=== PATIENT | female | born 1980 | race Caucasian/White ===

== ENCOUNTER 2021-05-22 23:37 | Emergency (ER) | payer BC ==
[~2021-05-22] VITALS: Ht 154.9 cm; Wt 81.8 kg
[2021-05-22] MEDS ORDERED: normal saline 1000ml 1,000 ML IV ONE (23:45)
[2021-05-22] MEDS ORDERED: LORazepam 2 mg/ml vial IV ONE (23:45)
[2021-05-23 00:29] VITALS: BP 121/75
== END 2021-05-23 00:42 ==
LOC: ER 23:37
DX: F10.129 Alcohol abuse with intoxication, unspecified (principal); Z72.89 Other problems related to lifestyle; V89.2XXA Person injured in unspecified motor-vehicle accident, traffic, initial encounter; Y93.89 Activity, other specified; Y92.89 Other specified places as the place of occurrence of the external cause; Y99.8 Other external cause status; Y90.9 Presence of alcohol in blood, level not specified
CPT/HCPCS: 93005; 96374; 99283; J2060; J7030